=== PATIENT | female | born 1930 | race Caucasian/White ===

== ENCOUNTER → 2018-03-17 | Outpatient (CLI) | payer MEDICARE, OTHER ==
[2018-03-17 09:03] VITALS: BP 171/54; BP 177/57; BP 181/76
[2018-03-17 11:09] VITALS: BP 113/71; BP 171/54; BP 180/57; BP 188/80
== END ==
LOC: M.INFUS 07:44 → M.LAB 08:00 → M.INFUS 03-18 08:00
DX: D64.9 Anemia, unspecified (principal); I25.10 Atherosclerotic heart disease of native coronary artery without angina pectoris

== ENCOUNTER → 2018-04-22 | Outpatient (CLI) | payer MEDICARE, OTHER | LOC: M.RAD 11:17 | DX: M16.0 Bilateral primary osteoarthritis of hip (principal); M47.816 Spondylosis without myelopathy or radiculopathy, lumbar region; M41.86 Other forms of scoliosis, lumbar region; I25.10 Atherosclerotic heart disease of native coronary artery without angina pectoris ==

== ENCOUNTER → 2018-07-31 | Outpatient (CLI) | payer MEDICARE, OTHER | LOC: M.CT 14:14 | DX: R19.7 Diarrhea, unspecified (principal); R10.9 Unspecified abdominal pain ==

== ENCOUNTER → 2018-08-25 | Outpatient (CLI) | payer MEDICARE, OTHER | LOC: M.ULTRA 09:02 | DX: N28.1 Cyst of kidney, acquired (principal) ==

== ENCOUNTER → 2019-08-04 | Outpatient (CLI) | payer MEDICARE, OTHER | LOC: M.ULTRA 12:42 | DX: M79.89 Other specified soft tissue disorders (principal); M79.606 Pain in leg, unspecified ==